=== PATIENT | female | born 1960 | race Caucasian/White ===

== ENCOUNTER 2018-04-11 10:04 | Emergency (ER) | payer OTHER, MEDICAID, SELFPAY ==
[2018-04-11 10:10] VITALS: BP 123/68; PULSE 62; RESP 18; TEMP 36.6; O2SAT 100; BMI 19.2
--- NOTE | 2018-04-11 10:26 | ED.ABDPAIN ---
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 She has the undergoing immunotherapy she just finished radiation therapy. She does have a PEG tube. This morning she put Mendel seeds down her PEG tube and clogged it. The nurses are ready rapidly cleared and flushed the seeds. She has abdominal pain no fever nausea or vomiting. Related Data Home Medications Medication Instructions Recorded Confirmed Fish Oil (#OMEGA 3) 1,000 mg PO #0 08/05/11 CA PANTOTHENATE/FOLIC ACID/VIT 1 tab PO QDAY #0 05/16/13 (MULTIVITAMIN) Previous Rx's Medication Instructions Recorded meclizine 12.5 mg PO Q4HP PRN #10 tab 12/04/17 Allergies Allergy/AdvReac Type Severity Reaction Status Date / Time venlafaxine [VENLAFAXINE] Allergy Mild HEADACHE Verified 04/11/18 10:13 Review of Systems Review of Systems All systems reviewed & are unremarkable except as noted in HPI and below Cardiovascular Denies dyspnea and Denies dyspnea on exertion Respiratory Denies cough, Denies dyspnea, Denies dyspnea on exertion and Denies wheezing Gastrointestinal Gastrointestinal: Reports as per HPI Musculoskeletal Denies back pain and Denies muscle weakness Hematologic/Lymphatic Denies easy bruising Allergic/Immunologic Denies wheezing PFSH Medical History Cancer of tonsil (Acute) Family History Father Age: 93 Leukemia, Onset Age: 82 Brother Age: 59 Alcoholic Brother Age: 44 CAD (coronary artery disease), Onset Age: 38 Mother Age: 77 CAD (coronary artery disease), Onset Age: 70 Exam Initial Vital Signs Initial Vital Signs: Vital Signs Temperature 97.9 F 04/11/18 10:10 Pulse Rate 62 04/11/18 10:10 Respiratory Rate 18 04/11/18 10:10 Blood Pressure 123/68 H 04/11/18 10:10 Pulse Oximetry 100 04/11/18 10:10 GENERAL: Well-appearing, well-nourished and in no acute distress. CARDIOVASCULAR: peripheral pulses in tact, cap refill <2 sec RESPIRATORY: No respiratory distress, speaks in full sentences without difficulty ABDOMEN: Soft, nontender, no guarding or rebound peg tube in place, no surrounding erythema EXTREMITIES: Normal range of motion, no clubbing or edema. Neurovascularly intact NEUROLOGICAL: Cranial nerves II through XII grossly intact. Normal gait and speech. SKIN: Warm, dry, no petechiae, no rashes or lesions. Course Vital Signs - 8 hr 04/11/18 10:10 Temperature 97.9 F Pulse Rate 62 Respiratory Rate 18 Blood Pressure 123/68 H Pulse Oximetry 100 Discharge Plan Departure Patient Disposition: Home, Self-Care Clinical Impression: Malfunction of percutaneous endoscopic gastrostomy (PEG) tube Discharge Date/Time: 04/11/18 10:37 Interventions: ED Discharge Assessment Last Done: 04/11/18 10:36 Instructions: Percutaneous Endoscopic Gastrostomy Activity Restrictions/Additional Instructions: *You have been diagnosed with peg tube problem *What to do: do not put Mendel seeds in your peg tube, or anything else that could potentially block it *Take medications as directed *Follow up with your primary care provider in 2-3 days *Return to ER if you should have any new, worsening or concerning symptoms Prescriptions: No Action Fish Oil (#OMEGA 3) 1,000 mg PO Qty: 0 RF: 0 CA PANTOTHENATE/FOLIC ACID/VIT (MULTIVITAMIN) 1 tab PO QDAY Qty: 0 RF: 0 meclizine 12.5 MG tablet 12.5 mg PO Q4HP PRNQty: 10 RF: 0
== END 2018-04-11 10:37 | disposition home or self-care (01) ==
PROVIDERS: Emergency Provider Emergency Medicine; PCP Family Medicine
DX: K94.23 Gastrostomy malfunction (principal)
CPT/HCPCS: 99282

== ENCOUNTER 2018-04-12 15:12 | Emergency (ER) | payer MEDICAID, OTHER, SELFPAY ==
[2018-04-12 16:54] VITALS: BP 125/72; PULSE 57; RESP 16; O2SAT 100
--- NOTE | 2018-04-12 16:55 | PC.NURSE ---
i was able to aspirate from peg tube approximately 20ml and then reinfused stomach contents, then I was able to flush line with water. It took a little bit and then I infused lenin navi through tube. I told Dr. Padgett about it. Pt is scheduled to get her last immunotherapy tomorrow at [facility]. And she has no other complaints other than her tube not working. She left after tube was patent.
== END 2018-04-12 16:58 | disposition left against medical advice (07) ==
LOC: ED 15:16
PROVIDERS: PCP Family Medicine
DX: T82.9XXA Unspecified complication of cardiac and vascular prosthetic device, implant and graft, initial encounter (principal)
CPT/HCPCS: 99281; 99282

== ENCOUNTER → 2018-06-22 19:56 | Outpatient (REF) | payer OTHER, MEDICAID, SELFPAY | LOC: LAB 19:56 | PROVIDERS: PCP Family Medicine; Visit Provider Otolaryngology | DX: Z85.818 Personal history of malignant neoplasm of other sites of lip, oral cavity, and pharynx (principal); D49.89 Neoplasm of unspecified behavior of other specified sites | CPT/HCPCS: 87070 ==

== ENCOUNTER → 2018-07-02 15:54 | Outpatient (CLI) | payer OTHER, MEDICAID, SELFPAY | PROVIDERS: PCP Family Medicine; Visit Provider Internal Medicine | DX: L59.8 Other specified disorders of the skin and subcutaneous tissue related to radiation (principal); R13.10 Dysphagia, unspecified | CPT/HCPCS: 99211 ==

== ENCOUNTER → 2018-07-27 10:02 | Outpatient (CLI) | payer OTHER, MEDICAID, SELFPAY | PROVIDERS: PCP Family Medicine; Visit Provider Internal Medicine | DX: L59.8 Other specified disorders of the skin and subcutaneous tissue related to radiation (principal); E87.6 Hypokalemia | CPT/HCPCS: 99211 ==

== ENCOUNTER → 2018-07-27 10:43 | Outpatient (CLI) | payer OTHER, MEDICAID, SELFPAY ==
--- NOTE | 2018-07-27 | DI.RAD.S_ITS ---
PROCEDURE: XR CHEST 2V INDICATIONS: HYPERBARIC SCREENING TECHNIQUE: 2 views of the chest were acquired. COMPARISON: [place], [place], PET/CT SKULL BASE TO MID THIGH, 02/19/2018, 9:11. FINDINGS: Surgical changes and devices: Surgical clips project over the left neck base. Percutaneous gastrostomy tube projects over the left upper quadrant. Lungs and pleura: No pleural effusions or pneumothorax. Lungs are clear. Mediastinum: Mediastinal contours are normal. Heart size is normal. Bones and chest wall: No suspicious bony abnormalities. Soft tissues appear unremarkable. IMPRESSION: No acute cardiopulmonary disease process. Dictated by: Sena Harper MD, PhD on 07/27/2018 at 11:10 Approved by: Sena Harper MD, PhD on 07/27/2018 at 11:13
== END ==
PROVIDERS: PCP Family Medicine; Visit Provider Internal Medicine
DX: Z01.818 Encounter for other preprocedural examination (principal)
CPT/HCPCS: 71046